=== PATIENT | female | born 1990 | race Caucasian/White ===

== ENCOUNTER 2017-08-30 11:17 | Emergency (ER) | payer SELFPAY ==
[2017-08-30 11:36] VITALS: BP 108/62
--- NOTE | 2017-08-30 11:42 | ED Physician Documentation ---
Eye Problem - HISTORIAN Historian: patient - HPI Stated Complaint: right eye redness and swelling Chief Complaint: General Adult Onset: days ago (4 days) Associated symptoms: pain, redness, eyelid swelling Location: right eye Severity: mild Apparent Injury: no Context: denies: direct trauma, chemical exposure, exposure to welding arc, sick contact Further Comments: yes (4 day history of a ? stye developing in the right medial upper eyelid. Eyelid has been swelling more. Now starting to thave some mild matting tot he eye.) - ROS CONST: no problems. denies: fever, chills - PAST HX Past History: none. denies: diabetes Type 2 Immunizations: referred to PCP Allergies/Adverse Reactions: Allergies Allergy/AdvReac Type Severity Reaction Status Date / Time Penicillins Allergy Unknown Verified 08/30/17 11:36 sulfamethoxazole Allergy Unknown Verified 08/30/17 11:36 [From ] trimethoprim [From ] Allergy Unknown Verified 08/30/17 11:36 Home Medications: Ambulatory Orders Medication Instructions Recorded Ciprofloxacin HCl [Cipro] 500 mg PO BID #20 tablet 08/30/17 - SOCIAL HX Smoking History: non-smoker - FAMILY HX Family History: none - VITAL SIGNS Vital Signs: Vital Signs Temp Pulse Resp BP Pulse Ox 98.4 F 88 16 108/62 98 08/30/17 11:26 08/30/17 11:26 08/30/17 11:26 08/30/17 11:26 08/30/17 11:26 - REVIEWED ASSESSMENTS Nursing Assessment Reviewed: Yes Vitals Reviewed: Yes Eye Problem Physical Exam - Physical Exam General Appearance: alert, mild distress Examined with Slit Lamp: No Visual Acuity: see nursing assessment Eyelids: nml inspection (left), edema (R), everted for exam (R), erythema (R), stye (R) Conjunctiva and Sclera: nml inspection Corneas: nml inspection EOM: intact Pupils: equal Anterior Chambers: nml inspection Post Segments: nml funduscopic (R) Head/ENT: nml inspection, pharynx nml Skin: nml color, warm Respiratory: no resp distress CVS: reg rate & rhythm, heart sounds normal, equal pulses Neuro/Psych: oriented x3, neuro intact Discharge Clincal Impression: Blepharitis of eyelid of right eye Prescriptions: Ciprofloxacin HCl [Cipro] 500 mg PO BID #20 tablet Referrals: Primary Doctor,No [Primary Care Provider] - 2 Days Additional Instructions: Continue to use a warm compress to your eye. Take antibiotic (cipro) as directed. If you eye is not improving in the next 2-3 days to follow-up with your primary care provider or return to the ED. Condition: Stable Disposition: 01 HOME, SELF-CARE Decision to Admit: NO Date of Decison to Admit: 08/30/17 Decision Time: 11:58
== END 2017-08-30 11:59 | disposition home or self-care (01) ==
LOC: ED 11:17
DX: H01.003 Unspecified blepharitis right eye, unspecified eyelid (principal)
CPT/HCPCS: 99283

== ENCOUNTER 2018-09-05 13:14 | Emergency (ER) | payer SELFPAY ==
[2018-09-05 13:39] VITALS: BP 108/76
--- NOTE | 2018-09-05 13:41 | ED Physician Documentation ---
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 Pt reports Left 4th digit redness x 2 days. pain /. intermittent. Pt reports she was rock hunting the day before it started. pt reports she has had the same symptoms several months ago. pt denies any drainage or fever. Location: other (Left 4th digit) Onset: days ago (2) Timing: still present Duration: constant Recent Injury: No Severity: mild Associated Symptoms: denies: fever, chills, sweating, shortness of breath, difficulty breathing, chest pain, chest discomfort, nausea, vomiting Quality: pain (10 aching ) - ROS CONST: no problems EYES/ENT: none CVS/RESP: none GI/: none NEURO/PSYCH: denies: headache, fainting, dizziness - PAST HX Past History: none Other History: none Surgeries/Procedures: Immunizations: other (current within 5 years) Allergies/Adverse Reactions: Allergies Allergy/AdvReac Type Severity Reaction Status Date / Time Penicillins Allergy Unknown Verified 09/05/18 13:28 sulfamethoxazole Allergy Unknown Verified 09/05/18 13:28 [From ] trimethoprim [From ] Allergy Unknown Verified 09/05/18 13:28 Home Medications: Ambulatory Orders Medication Instructions Recorded NK 09/05/18 - SOCIAL HX Smoking History: non-smoker - FAMILY HX Family History: no significant history - VITAL SIGNS Vital Signs: Vital Signs Temp Pulse Resp BP Pulse Ox 97.3 F L 78 18 108/76 99 09/05/18 13:15 09/05/18 13:15 09/05/18 13:15 09/05/18 13:15 09/05/18 13:15 - REVIEWED ASSESSMENTS Nursing Assessment Reviewed: Yes Vitals Reviewed: Yes Upper Extremity Problem - EXAM General Appearance: no acute distress, alert Shoulder Exam: normal inspection Elbow/Forearm Exam: normal inspection Wrist Exam: normal inspection Hand Exam: no evidence of injury, normal ROM, infection (L 4th finger- mild erythema distal from DIP. very Mild tenderness. no warmth or drainage. ) Neuro/Tendon: normal sensation, normal motor functions, normal tendon functions EENT: eye inspection normal, no signs of dehydration Vascular: no vascular compromise Peripheral: sensation nml, motor nml Central: oriented X3, motor nml, sensation nml Respiratory: no resp. distress Abdomen: No: guarding Discharge Clincal Impression: Felon of finger of left hand Referrals: Primary Doctor,No [Primary Care Provider] - 2 Days Comments: (Clindamycin 300 mg Four times a day for 10 days-pt reports she is unable to afford) changed to keflex 500 mg TID x 10 days. Follow up in 3 days in clinic or ER for recheck. Return if increased pain, swelling, fever, or any concern. Prop up your hand on a pillow anytime you sit or lie down during the next 3 days. Try to keep the area above the level of your heart. This will help reduce swelling. You also may soak your finger in warm water with epsom salt Condition: Good Disposition: 01 HOME, SELF-CARE Decision to Admit: NO Date of Decison to Admit: 09/05/18 Decision Time: 14:05
== END 2018-09-05 13:50 | disposition home or self-care (01) ==
LOC: ED 13:14
DX: L03.012 Cellulitis of left finger (principal)
CPT/HCPCS: 99283